=== PATIENT | male | born 1960 ===

== ENCOUNTER 2021-09-19 11:12 | Day surgery (SDC) | payer BC ==
[~2021-09-19] VITALS: Ht 188 cm; Wt 109.5 kg
[2021-09-19] VITALS (7 sets, daily range): BP systolic 116–143; BP diastolic 67–78; PULSE 80–91; TEMP 97.6–98.9
[2021-09-19] MEDS ORDERED: NORCO 325 MG-51 TAB PO (16:00)
--- NOTE | 2021-09-19 16:25 | NUR ---
PATIENT RETURNS TO ROOM 8 PER CART FROM PACU ACCOMPANIED THAIS SCRUGGS AND IS AWAKE. STATES THAT HE IS FEELING MORE AWAKE. DENIES PAIN OR NAUSEA AT THE PRESENT TIME. IV FLUIDS INFUSING. SIDERAILS UP X2 AND CALL LIGHT IN REACH. SPOUSE IN ROOM. WOUND EDGES WELL APPROXIMATED WITH EXOFIN SKIN GLUE NOTED. SCROTAL SWELLING NOTED AND INSTRUCTED ON ELEVATION AND WEARING SCROTAL SUPPORT IF NEEDED.
--- NOTE | 2021-09-19 16:40 | NUR ---
RESTING WITHOUT COMPLAINTS AND IS TALKING WITH SPOUSE.
--- NOTE | 2021-09-19 16:55 | NUR ---
ROOM AIR SATS 89% AND ENCOURAGED DEEP BREATING. SATS UP TO 91%. PLACED ON OXYGEN AT 2L. AWAKE AND TALKING WITH SPOUSE.
--- NOTE | 2021-09-19 17:10 | NUR ---
SIPPING ON SPRITE.
--- NOTE | 2021-09-19 17:25 | NUR ---
DRINKING SECOND CAN OF SPRITE AND EATING VANILLA PUDDING.
--- NOTE | 2021-09-19 17:38 | NUR ---
MEDICATED WITH NORCO 5MG TAB FOR ABDOMINAL SORENESS AND IN PREPARATION FOR GETTING UP AND GOING HOME.
--- NOTE | 2021-09-19 17:55 | NUR ---
ASSISTED UP TO THE BATHROOM AND IS ABLE TO VOID AND RETURNS TO ROOM. TOLERATES ACTIVITY WELL. INT NEEDLE DISCONTINUED AND SITE IS FREE OF REDNESS. PATIENT BECOMES FAINT WITH HAVING INT REMOVED AND LAYS DOWN. WILL CONTINUE TO MONITOR.
--- NOTE | 2021-09-19 18:07 | NUR ---
STATES FEELS BETTER AND IS DRESSING SELF WITH ASSIST OF SPOUSE.
--- NOTE | 2021-09-19 18:18 | NUR ---
DISMISSAL INSTRUCTIONS GIVEN AND VOICES UNDERSTANDING OF THESE. PATIENT DISMISSED TO HOME DRIVEN BY SPOUSE AND TAKEN TO ED ENTRANCE PER WHEELCHAIR AND ASSISTED INTO VEHICLE WITH INSTRUCTION IN HAND.
== END 2021-09-19 18:18 | disposition home or self-care (01) ==
LOC: SDCO 11:12
DX: K40.30 Unilateral inguinal hernia, with obstruction, without gangrene, not specified as recurrent (principal)
CPT/HCPCS: C1781; J0690; J1100; J1885; J2405; J2704; J3010; J7120